=== PATIENT | male | born 1980 | race Caucasian/White ===

== ENCOUNTER 2017-09-22 13:38 | Emergency (ER) | payer OTHER ==
[~2017-09-22] VITALS: Ht 182.9 cm; Wt 146.6 kg
[2017-09-22 13:39] VITALS: BP 106/73
[2017-09-22] MEDS ORDERED: LIDOCAINE-MPF 1%, 5ML INFIL ONE (14:00)
== END 2017-09-22 14:26 | disposition home or self-care (01) ==
LOC: ED 14:20
DX: L02.416 Cutaneous abscess of left lower limb (principal)
CPT/HCPCS: 10060; 99283